=== PATIENT | female | born 1965 | race African-American/Black ===

== ENCOUNTER 2017-01-17 12:32 | Emergency (ER) | payer OTHER ==
[~2017-01-17 12:32] MED LIST: AMLO-511 PO; HYDR25TA PO; LISI-660 PO; SUMA25TA9 PO
== END 2017-01-17 14:36 | disposition left against medical advice (07) ==
LOC: EMS 12:33
DX: J02.9 Acute pharyngitis, unspecified (principal); Z53.21 Procedure and treatment not carried out due to patient leaving prior to being seen by health care provider

== ENCOUNTER 2017-01-20 00:14 | Emergency (ER) | payer OTHER ==
[~2017-01-20] VITALS: Ht 170.2 cm; Wt 72.3 kg
[2017-01-20] MEDS ORDERED: DiphenhydrAMINE HCL 50 MG/ML VIAL IM ONE (00:45)
[2017-01-20] MEDS ORDERED: KETOROLAC TROMETHAMINE 30 MG/ML VIAL IM ONE (00:45)
[2017-01-20] MEDS ORDERED: METOCLOPRAMIDE HCL 5 MG/ML 2 ML VIAL IM ONE (00:45)
[2017-01-20 02:45] VITALS: BP 118/80
== END 2017-01-20 02:47 | disposition home or self-care (01) ==
LOC: EMS 00:15
DX: G43.909 Migraine, unspecified, not intractable, without status migrainosus (principal); I10 Essential (primary) hypertension; J44.9 Chronic obstructive pulmonary disease, unspecified; Z88.6 Allergy status to analgesic agent
CPT/HCPCS: 96372; 99284; J1200; J1885; J2765

== ENCOUNTER 2018-03-09 09:02 | Emergency (ER) | payer OTHER ==
[~2018-03-09] VITALS: Ht 167.6 cm; Wt 71.4 kg
[~2018-03-09 09:02] MED LIST changes: -HYDR25TA PO
[2018-03-09 10:10] VITALS: BP 131/89
[2018-03-09] MEDS ORDERED: AZITHROMYCIN 250 MG TABLET PO ONE (10:45)
[2018-03-09] MEDS ORDERED: CefTRIAXone SODIUM 1 GM/VIAL IM ONE (10:45)
== END 2018-03-09 11:06 | disposition home or self-care (01) ==
LOC: EMS 09:03
DX: N34.2 Other urethritis (principal); J44.9 Chronic obstructive pulmonary disease, unspecified; I10 Essential (primary) hypertension; G43.909 Migraine, unspecified, not intractable, without status migrainosus; Z88.5 Allergy status to narcotic agent
CPT/HCPCS: 96372; 99283; J0696

== ENCOUNTER 2018-04-17 07:08 | Emergency (ER) | payer OTHER ==
[~2018-04-17] VITALS: Ht 170.2 cm; Wt 74.1 kg
[~2018-04-17 07:08] MED LIST changes: -AMLO-511 PO
[2018-04-17] MEDS ORDERED: FERR-89 PO (07:31)
[2018-04-17 09:33] LABS: APPEARANCE,URINE CLEAR (CLEAR); BILIRUBIN,URINE NEGATIVE (NEGATIVE); GLUCOSE, URINE (UA) NEGATIVE (NEGATIVE); KETONES,URINE NEGATIVE (NEGATIVE); LEUKOCYTE ESTERASE ,URINE NEGATIVE (NEGATIVE); NITRATE,URINE NEGATIVE (NEGATIVE); OCCULT BLOOD,URINE NEGATIVE (NEGATIVE); PROTEIN,URINE NEGATIVE (NEGATIVE); UROBILINOGEN,URINE 0.2 mg/dL (<=1.0)
[2018-04-17 09:42] LABS: BACTERIA,URINE Rare /HPF (None Seen); RBC,URINE None Seen /HPF (0-2); SQUAMOUS EPITHELIAL CELL,UR Few /LPF (None Seen); WBC,URINE 0-2 /HPF (0-5)
[2018-04-17] MEDS ORDERED: CefTRIAXone SODIUM 1 GM/VIAL IM ONE (09:45)
[2018-04-17] MEDS ORDERED: LIDOCAINE HCL/PF 1% 2 ML VIAL IM ONE (09:45)
[2018-04-17 09:47] VITALS: BP 143/100
== END 2018-04-17 09:58 | disposition home or self-care (01) ==
LOC: EMS 07:09
DX: N89.8 Other specified noninflammatory disorders of vagina (principal); I10 Essential (primary) hypertension; J44.9 Chronic obstructive pulmonary disease, unspecified; G43.909 Migraine, unspecified, not intractable, without status migrainosus; D25.9 Leiomyoma of uterus, unspecified; Z90.710 Acquired absence of both cervix and uterus; Z79.899 Other long term (current) drug therapy; Z88.8 Allergy status to other drugs, medicaments and biological substances
CPT/HCPCS: 81001; 87210; 87491; 87591; 96372; 99284; J0696; J3490

== ENCOUNTER 2018-05-23 07:01 | Emergency (ER) | payer OTHER ==
[~2018-05-23] VITALS: Ht 170.2 cm; Wt 63.6 kg
[~2018-05-23 07:01] MED LIST changes: +FERR-89 PO
[2018-05-23] MEDS ORDERED: AZITHROMYCIN 250 MG TABLET PO ONE (08:15)
[2018-05-23] MEDS ORDERED: CefTRIAXone SODIUM 1 GM/VIAL IM ONE (08:15)
[2018-05-23] MEDS ORDERED: LIDOCAINE HCL/PF 1% 2 ML VIAL IM ONE (08:45)
[2018-05-23 08:55] VITALS: BP 136/81
== END 2018-05-23 09:05 | disposition home or self-care (01) ==
LOC: EMS 07:01
DX: N76.0 Acute vaginitis (principal); N89.8 Other specified noninflammatory disorders of vagina; J44.9 Chronic obstructive pulmonary disease, unspecified; I10 Essential (primary) hypertension; G43.909 Migraine, unspecified, not intractable, without status migrainosus; Z20.2 Contact with and (suspected) exposure to infections with a predominantly sexual mode of transmission; Z88.8 Allergy status to other drugs, medicaments and biological substances
CPT/HCPCS: 96372; 99283; J0696; J3490

== ENCOUNTER 2019-02-09 06:01 | Emergency (ER) | payer OTHER ==
[~2019-02-09] VITALS: Ht 167.6 cm; Wt 69.5 kg
[2019-02-09 07:13] VITALS: BP 136/104
== END 2019-02-09 07:15 | disposition home or self-care (01) ==
LOC: EMS 06:02
DX: J06.9 Acute upper respiratory infection, unspecified (principal); I10 Essential (primary) hypertension; G43.909 Migraine, unspecified, not intractable, without status migrainosus; J44.9 Chronic obstructive pulmonary disease, unspecified; Z79.899 Other long term (current) drug therapy; Z88.6 Allergy status to analgesic agent; Z90.710 Acquired absence of both cervix and uterus; Z98.51 Tubal ligation status

== ENCOUNTER 2019-05-26 08:47 | Emergency (ER) | payer OTHER ==
[~2019-05-26] VITALS: Ht 170.2 cm; Wt 72.0 kg
[2019-05-26 10:05] VITALS: BP 138/104
== END 2019-05-26 10:07 | disposition home or self-care (01) ==
LOC: EMS 08:50
DX: J40 Bronchitis, not specified as acute or chronic (principal); I10 Essential (primary) hypertension; G43.909 Migraine, unspecified, not intractable, without status migrainosus; D25.9 Leiomyoma of uterus, unspecified; Z88.6 Allergy status to analgesic agent; Z79.899 Other long term (current) drug therapy